=== PATIENT | female | born 1980 | race Caucasian/White ===

== ENCOUNTER 2019-09-03 14:46 | Emergency (ER) | payer OTHER, SELFPAY ==
--- NOTE | ~2019-09-03 | US_ITS ---
EXAMINATION: US venous doppler LE EXAM DATE: 09/03/2019 16:01 INDICATION: Bilateral leg swelling. TECHNIQUE: Multiple grayscale, color flow and Doppler images of the lower extremity deep venous syste ms bilaterally were obtained and reviewed. There is no prior study for comparison. FINDINGS: Right side: The right common femoral, femoral and profunda veins demonstrate normal color flow, respi ratory variation, augmentation and compressibility. Compressibility, color flow confirmed within the right popliteal, posterior tibial, peroneal, and greater saphenous veins. Left side: The left common femoral, femoral and profunda veins demonstrate normal color flow, respira tory variation, augmentation and compressibility. Compressibility, color flow confirmed within the l eft popliteal, posterior tibial, peroneal, and greater saphenous veins. IMPRESSION: 1. No lower extremity deep venous thrombosis bilaterally. Reviewed, dictated and finalized at location A.
[2019-09-03 14:53] VITALS: BP 133/99; PULSE 105; RESP 20; TEMP 37.2; O2SAT 100
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
--- NOTE | 2019-09-03 18:10 | PC.NURSE ---
dressing change and cleaned by LAURA
[2019-09-03 18:12] VITALS: BP 130/89; PULSE 89; RESP 20; O2SAT 100
== END 2019-09-03 18:14 | disposition home or self-care (01) ==
PROVIDERS: Emergency Provider Emergency Medicine
DX: S91.002D Unspecified open wound, left ankle, subsequent encounter (principal); S91.101D Unspecified open wound of right great toe without damage to nail, subsequent encounter; F31.9 Bipolar disorder, unspecified; E11.9 Type 2 diabetes mellitus without complications; F17.200 Nicotine dependence, unspecified, uncomplicated; V49.9XXD Car occupant (driver) (passenger) injured in unspecified traffic accident, subsequent encounter; Z79.4 Long term (current) use of insulin
CPT/HCPCS: 93970; 99284

== ENCOUNTER 2019-12-06 11:26 | Emergency (ER) | payer OTHER, SELFPAY ==
--- NOTE | ~2019-12-06 | US_ITS ---
EXAMINATION:US venous doppler LE LT INDICATION:Left leg swelling and redness TECHNIQUE: Multiple grayscale, color flow and Doppler images of the left lower extremity deep venous systems were obtained and reviewed. COMPARISON:09/03/2019 FINDINGS: The common femoral, superficial femoral and popliteal veins demonstrate normal respiratory variation, augmentation and compressibility. Color flow is also seen within the posterior tibial, pe roneal, greater saphenous and profunda veins. There is mild subcutaneous edema. There is left inguina l lymphadenopathy, likely reactive. IMPRESSION: 1: No lower extremity deep venous thrombosis. Reviewed, dictated and finalized at location A.
[2019-12-06 11:29] VITALS: BP 133/94; PULSE 119; RESP 20; TEMP 36.4; O2SAT 99
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
[2019-12-06 12:43] LABS: Basophils Absolute Auto 0.1 K/mm3 (0.0-0.1); Basophils Percent Auto 0.3 % (0.2-1.2); Eosinophils Absolute Auto 0.1 K/mm3 (0-0.3); Eosinophils Percent Auto 0.8 % (0-4.4); Hematocrit 41.5 % (37.0-47.0); Hemoglobin 14.7 g/dL (12.0-15.0); Immature Granulocyte Absolute 0.08 K/mm3 (0.00-0.031); Immature Granulocyte Percent A 0.5 % (0-0.5); Lymphocytes Absolute Auto 2.38 K/mm3 (0.9-3.2); Lymphocytes Percent Auto 13.8 % (18.3-44.2); Mean Corpuscular HGB Conc 35.4 g/dl (32-36); Mean Corpuscular Volume 90.4 fl (80-100); Mean Platelet Volume 10.8 fl (7.4-10.4); Monocytes Absolute Auto 1.2 K/mm3 (0.1-0.6); Monocytes Percent Auto 6.9 % (2.6-8.5); Neutrophils Absolute Auto 13.4 K/mm3 (1.3-6.7); Neutrophils Percent Auto 77.7 % (45.5-73.1); Platelet Count Result 188 k/mm3 (150-375); Red Blood Count 4.59 M/mm3 (4.2-5.4); Red Cell Distribution Width 13.2 % (11.5-14.5); White Blood Count 17.2 K/mm3 (4.5-10.0)
[2019-12-06 12:55] LABS: Anion Gap 12.2 mmol/L (7-16); Blood Urea Nitrogen 12 mg/dL (7-17); Calcium 9.7 mg/dL (8.4-10.2); Carbon Dioxide 27 mmol/L (22-30); Chloride 102 mmol/L (98-107); Estimated Glomerular Filt Rate > 60; Glucose 117 mg/dL (65-105); Potassium 3.2 mmol/L (3.4-5.0); Sodium 138 mmol/L (137-145)
[2019-12-06] MEDS: SODIUM CHLORIDE 0.9% IV 1,000 ML 999 ML IV CONT (13:17)
== END 2019-12-06 13:57 | disposition home or self-care (01) ==
PROVIDERS: Emergency Provider Emergency Medicine
DX: L03.116 Cellulitis of left lower limb (principal); F31.9 Bipolar disorder, unspecified; E11.9 Type 2 diabetes mellitus without complications; Z79.4 Long term (current) use of insulin; F17.200 Nicotine dependence, unspecified, uncomplicated
CPT/HCPCS: 36415; 80048; 85025; 93971; 96374; 99284; J3010; J7030

== ENCOUNTER 2020-01-26 18:36 | Emergency (ER) | payer OTHER, SELFPAY ==
--- NOTE | ~2020-01-26 | XR_ITS ---
EXAMINATION: XR tibia fibula LT 2V INDICATION: Left lower limb edema and redness TECHNIQUE: Two views of the left tibia and fibula are obtained on four radiographs. COMPARISON: None available FINDINGS: Orthopedic hardware is present in the distal tibia traversing a healing fracture which exte nds to the tibial plafond. A stabilization screw enters the lateral malleolus and continues proximall y in the intramedullary space of the fibula. There is ankle soft tissue swelling. No definite acute f racture is identified. Dorsal and plantar calcaneal enthesophytes are noted. IMPRESSION: 1. Ankle soft tissue swelling without definite acute osseous abnormality. 2. Orthopedic hardware of the ankle with a healing distal tibia fracture. Reviewed, dictated and finalized at location A.
[2020-01-26 18:37] VITALS: BP 122/77; PULSE 105; RESP 20; TEMP 37.1; O2SAT 97
--- NOTE | 2020-01-26 19:35 | ED.GENADULT ---
HPI - General Adult General Chief complaint: Unspecified Stated complaint: foot swelling/ ETOH Withdrawl Time Seen by Provider: 01/26/20 19:10 Source: patient Mode of arrival: wheelchair Limitations: no limitations History of Present Illness HPI narrative: This is a 39-year-old female that presents the emergency department for left lower extremity swelling x3 days. Also reports redness to the area. Reports intermittent fevers. Reports she was seen here for similar symptoms a month ago and was started on oral antibiotics with relief of her symptoms. Reports she started to have swelling and redness again just a couple of days ago. Also reports she has been drinking 1/5 of alcohol daily. Reports she feels like she is withdrawing. Reports she has been shaking and anxious. Reports she last had a shot a couple of hours ago. Reports she has a history of diabetes and is out of her insulin. Denies chest pain, or shortness of breath. Related Data Home Medications Medication Instructions Recorded Confirmed alprazolam [Xanax] 2 mg PO TID 09/03/19 insulin NPH isoph U-100 human 24 unit SUBCUT BID 09/03/19 [Novolin N NPH U-100 Insulin] Allergies Allergy/AdvReac Type Severity Reaction Status Date / Time morphine AdvReac Difficulty Verified 01/26/20 18:42 Breathing Review of Systems Review of Systems: Narrative: CONSTITUTIONAL: Reports fever CARDIOVASCULAR: Reports edema. Denies chest pain RESPIRATORY: Denies dyspnea. SKIN: Reports erythema MUSCULOSKELETAL: Reports joint pain, and myalgia. PSYCHIATRIC: Reports anxiety All systems reviewed & are unremarkable except as noted in HPI and below PMFSH Past Medical History Medical History (Updated 01/26/20 @ 20:57 by Mahogany Jurado PA-C) Bipolar disorder Diabetes mellitus Social History Social History Smoking status: Current every day smoker Gender identity (if verbalized by the patient): Female Exam Narrative: Exam Narrative: GENERAL: Well-appearing, well-nourished, anxious. HEAD: Normocephalic, atraumatic. EYES: EOMI. ENT: Nares clear, no rhinorrhea or epistaxis. Mucous membranes moist. Oropharynx without tonsillar hypertrophy exudate or other lesions. Bilateral TMs pearly marte non-bulging NECK: Supple. No adenopathy or masses. No carotid bruits or JVD CHEST: Clear to auscultation. No respiratory distress. No wheezes rales or rhonchi HEART: Regular rate and rhythm. No murmur heard. Normal peripheral pulses. ABDOMEN: Soft, nontender, nondistended, normal active bowel sounds. EXTREMITIES: Normal range of motion. Left lower extremity with moderate edema and mild redness just above the ankle. Normal DP pulses SKIN: Warm, dry, no rash. NEURO: No focal deficits. Alert and oriented x3. PSYCH: Anxious, tearful Course Vital Signs Vital signs: Vital Signs Temperature 98.8 F 01/26/20 18:37 Pulse Rate 105 H 01/26/20 18:37 Respiratory Rate 01/26/20 18:37 Blood Pressure 122/77 01/26/20 18:37 Pulse Oximetry 97 01/26/20 18:37 Temperature 98.8 F 01/26/20 18:37 Pulse Rate 105 H 01/26/20 18:37 Respiratory Rate 01/26/20 18:37 Blood Pressure 122/77 01/26/20 18:37 Pulse Oximetry 97 01/26/20 18:37 Medical Decision Making MDM Narrative Medical decision making narrative: Patient presents the emergency department for left lower extremity edema and erythema. Also was reporting symptoms of alcohol withdrawal. Patient evaluated and laboratory and imaging studies ordered. She eloped prior to full evaluation and treatment Vital Signs Vital Signs: Vital Signs Temperature 98.8 F 01/26/20 18:37 Pulse Rate 105 H 01/26/20 18:37 Respiratory Rate 01/26/20 18:37 Blood Pressure 122/77 01/26/20 18:37 Pulse Oximetry 97 01/26/20 18:37 Temperature 98.8 F 01/26/20 18:37 Pulse Rate 105 H 01/26/20 18:37 Respiratory Rate 01/26/20 18:37 Blood Pressure 122/7
[2020-01-26 20:06] LABS: Basophils Absolute Auto 0.1 K/mm3 (0.0-0.1); Basophils Percent Auto 0.6 % (0.2-1.2); Eosinophils Absolute Auto 0.4 K/mm3 (0-0.3); Eosinophils Percent Auto 3.9 % (0-4.4); Hematocrit 40.7 % (37.0-47.0); Hemoglobin 14.4 g/dL (12.0-15.0); Immature Granulocyte Absolute 0.04 K/mm3 (0.00-0.031); Immature Granulocyte Percent A 0.4 % (0-0.5); Lymphocytes Absolute Auto 3.34 K/mm3 (0.9-3.2); Lymphocytes Percent Auto 29.8 % (18.3-44.2); Mean Corpuscular HGB Conc 35.4 g/dl (32-36); Mean Corpuscular Hemoglobin 33.3 pg (26-34); Mean Corpuscular Volume 94.2 fl (80-100); Mean Platelet Volume 10.7 fl (7.4-10.4); Monocytes Percent Auto 8.8 % (2.6-8.5); Neutrophils Absolute Auto 6.3 K/mm3 (1.3-6.7); Neutrophils Percent Auto 56.5 % (45.5-73.1); Platelet Count Result 237 k/mm3 (150-375); Red Blood Count 4.32 M/mm3 (4.2-5.4); Red Cell Distribution Width 13.1 % (11.5-14.5); White Blood Count 11.2 K/mm3 (4.5-10.0)
--- NOTE | 2020-01-26 20:10 | PC.NURSE ---
this rn went to give pt meds, pt not in room, gown found on ground. this rn looked around department, in bathrooms, no pt found. looked in waiting room pt was on the telephone in waiting room. this rn informed pt that she needs to go back to her room and can't be in the waiting room especially since she has an IV in place. pt states i really need to tell my boyfriend im here. pt instructed that she can use phone in the ed. pt taken back to her room.
[2020-01-26 20:16] LABS: Alanine Aminotransferase 99 U/L (4-35); Albumin Level 4.1 g/dL (3.5-5.1); Alkaline Phosphatase 100 U/L (38-126); Anion Gap 6 mmol/L (8-16); Aspartate Amino Transferase 81 U/L (14-36); Bilirubin,Total 1.1 mg/dL (0.2-1.3); Blood Urea Nitrogen 15 mg/dL (7-17); Calcium 9.3 mg/dL (8.4-10.2); Carbon Dioxide 25 mmol/L (22-30); Chloride 106 mmol/L (98-107); Estimated Glomerular Filt Rate > 60; Glucose 148 mg/dL (65-105); Potassium 3.3 mmol/L (3.4-5.0); Sodium 137 mmol/L (137-145)
[2020-01-26 20:19] LABS: CRP 0.9 mg/dL (<1.0)
[2020-01-26 20:20] LABS: Magnesium 1.9 mg/dL (1.6-2.3)
[2020-01-26 20:22] LABS: Lipase 65 U/L (23-300)
--- NOTE | 2020-01-26 20:30 | PC.NURSE ---
attempting to give all meds to pt. pt refusing because she needs to call her boyfriend. she states if she cant she will walk out of here. will attempt to start meds on pt once shes off the phone.
[2020-01-26 20:32] LABS: Erythrocyte Sedimentation Rate 15 mm/hr (0-20); Ethanol < 10 mg/dL (<10)
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
== END 2020-01-26 20:45 | disposition left against medical advice (07) ==
LOC: ANHED 19:32
PROVIDERS: Physician Assistant; Emergency Provider Emergency Medicine
DX: L03.116 Cellulitis of left lower limb (principal); F10.10 Alcohol abuse, uncomplicated; F31.9 Bipolar disorder, unspecified; E11.9 Type 2 diabetes mellitus without complications; Z79.4 Long term (current) use of insulin; F17.200 Nicotine dependence, unspecified, uncomplicated
CPT/HCPCS: 36415; 73590; 80053; 80307; 83690; 83735; 85025; 85652; 86140; 99283; J0131; J3411; J7120

== ENCOUNTER 2021-02-18 10:32 | Outpatient (CLI) | payer OTHER, SELFPAY ==
--- NOTE | ~2021-02-18 | XR_ITS ---
XR knee LT min 4V 02/18/2021 11:55 Indication: Left knee pain Procedure: 4 views left knee Comparison: No prior studies for comparison. Findings: Mild-moderate tricompartment osteoarthritis of the left knee. No fracture, subluxation or d islocation. No significant joint effusion. No significant soft tissue abnormality. Impression: 1: Mild-moderate osteoarthritis of the left knee. Reviewed, dictated and finalized at location B. Impression: 1: Mild-moderate osteoarthritis of the left knee.
--- NOTE | ~2021-02-18 | XR_ITS ---
EXAMINATION: XR tibia fibula LT 2V, XR foot LT 2V DATE: 02/18/2021 11:55 INDICATION: Left foot pain TECHNIQUE: 1. Anteroposterior and lateral views of the left tibia and fibula were obtained. 2. Dorsal plantar and lateral views of the left foot were obtained. COMPARISON: None. FINDINGS: Left tibia/fibula: No acute fracture. Old healed fractures of the distal left tibia and fibula the former with medial pl ate and screw fixation extending along the distal diaphysis to the medial malleolus as well as a more distal plate and screw fixation along the anterior margin of the tibial plafond. The fibular fractur e is fixed with a long retrograde intramedullary screw. Alignment appears near-anatomic. Small hetero topic ossicles near the tip of the medial malleolus likely related to the old trauma. Osteoarthritis at the left knee with mild to moderate joint space at the medial and lateral compartments which could be underestimated on nonweightbearing imaging. Mild subcutaneous edema throughout the left calf and about the ankle. Left foot: Old healed fracture deformities with mild medial angulation at the necks of the left fourth and fifth metatarsals. Additional irregular cortical contour along the proximal articular surface at the base of the fifth proximal phalanx suspicious for additional old healed fracture. Bone alignment is otherw ise normal. No other lesions suspicious for fracture identified. Suggestion of at least moderate oste oarthritis at the left ankle over significant portion of the joint space are obscured by the previous ly described superimposed fixation instrumentation. Mild osteoarthritis at several of the tarsal meta tarsal, metatarsophalangeal and interphalangeal joints. Moderate-sized plantar calcaneal spur and sma ll Achilles calcaneal spur. IMPRESSION: 1. Old healed internally fixed distal left tibia and fibular fractures which have healed in essential ly anatomic alignment. 2. Old fractures of the distal necks of the fourth and fifth metatarsals and at the base of the fifth proximal phalanx. 3. Polyarticular osteoarthritis, mild to moderate severity at the left knee and ankle and mild at mul tiple joints in the mid and forefoot. Reviewed, dictated and finalized at location A. IMPRESSION: 1. Old healed internally fixed distal left tibia and fibular fractures which baptiste ve healed in essentially anatomic alignment. 2. Old fractures of the distal necks of the fourth and fifth metatarsals and at the base of the fifth proximal phalanx. 3. Polyarticular osteoarthritis, mild to moderate severity at the left knee and ankle and mild at multiple joints in the mid and forefoot.
[2021-02-26 10:57] LABS: Amphetamines POSITIVE ng/mL (<500); Barbiturates NEGATIVE ng/mL (<300); Benzodiazepines NEGATIVE ng/mL (<100); Cocaine Metabolite NEGATIVE ng/mL (<100); D Methamphetamine 100 %; L Methamphetamine 0 %; Marijuana Metabolite NEGATIVE ng/mL (<20); Methadone Metabolite NEGATIVE ng/mL (<100); Opiates NEGATIVE ng/mL (<100); Oxidant NEGATIVE mcg/mL (<200); pH 6.1 (4.5-9.0)
== END 2021-02-18 10:33 | disposition home or self-care (01) ==
LOC: ANHBWCLAB 10:36
PROVIDERS: PCP Family Medicine; Visit Provider Family Medicine
DX: E11.9 Type 2 diabetes mellitus without complications (principal); E87.6 Hypokalemia; R74.8 Abnormal levels of other serum enzymes; G89.29 Other chronic pain; Z00.00 Encounter for general adult medical examination without abnormal findings; E28.2 Polycystic ovarian syndrome; F31.9 Bipolar disorder, unspecified; Z87.81 Personal history of (healed) traumatic fracture; M19.072 Primary osteoarthritis, left ankle and foot; M17.12 Unilateral primary osteoarthritis, left knee
CPT/HCPCS: 73564; 73590; 73620; 80299